=== PATIENT | female | born 1980 | race Caucasian/White ===

== ENCOUNTER 2019-04-18 14:32 | Inpatient (IN) | payer BC ==
[~2019-04-18 14:32] MED LIST: Naloxone 0.4 MG/ML SDV ONE
[2019-04-18] MEDS ORDERED: Sodium Chloride 0.9% 10 ML Syringe FLUSH PRN (14:41)
[2019-04-18] MEDS ORDERED: Sodium Chloride 0.9% 1,000 ML IV SCH (14:45)
--- NOTE | 2019-04-18 15:12 | EDM.PDOCBH ---
ED HPI GENERAL MEDICAL PROBLEM - General Chief Complaint: Drug or Alcohol Abuse Stated Complaint: [facility] Time Seen by Provider: 04/18/19 14:41 Source of Information: Reports: Patient, EMS History Limitations: Reports: Altered Mental Status - History of Present Illness INITIAL COMMENTS - FREE TEXT/NARRATIVE: The patient presents by [facility] for an overdose. The patient was trying to kill herself. The patient was unresponsive for about a half hour before EMS arrived. She supposedly took clonazapam 1mg and tizanadine 4mg. It is not clear how many she took. She had 39 clonazapam left and she had a prescription dispensed on the . She was supposed to take them 3 times per day so she could have taken 50 to 45 pill. She also was prescribed the tizanadine 120 pills on the . She has 71 left. She is supposed to take them 4 times per day. She could have taken 49 to 41 pills. EMS gave her 2 doses of narcan with no affect. Her respiratory rate was about 6. They assisted her ventilations and attempted an oral airway but she gagged and spit it out. They did have a nasal airway in but she did not want that in. She is breathing about 10 to 12 on her own now. She will respond to painful stimuli and then to verbal stimuli. She said she was trying to kill herself. According to EMS family said she has chronic abdominal pain and they cannot figure out what is causing it and she had an exploratory surgery months ago. She has also tried to kill herself in the past. Family is not here yet. Onset: Today Duration: Hour(s): Severity: Severe Improves with: Reports: None Worsens with: Reports: None Associated Symptoms: Reports: No Other Symptoms - Related Data Allergies Allergy/AdvReac Type Severity Reaction Status Date / Time No Known Allergies Allergy Verified 04/18/19 16:25 Home Meds: Home Meds ClonazePAM [KlonoPIN] 04/18/19 [History] Zolpidem Tartrate [Ambien] 04/18/19 [History] tiZANidine [Zanaflex] 04/18/19 [History] ED ROS GENERAL - Review of Systems Review Of Systems: See Below Constitutional: Reports: No Symptoms HEENT: Reports: No Symptoms Respiratory: Reports: No Symptoms Cardiovascular: Reports: No Symptoms Endocrine: Reports: No Symptoms GI/Abdominal: Reports: No Symptoms : Reports: No Symptoms Musculoskeletal: Reports: No Symptoms Skin: Reports: No Symptoms Psychiatric: Reports: Suicidal Ideation ED EXAM, BEHAVIORAL HEALTH - Physical Exam Exam: See Below Exam Limited By: Altered Mental Status General Appearance: Other (Sleepy but arrausable with verbal and painfull stimuli) Eye Exam: Bilateral Eye: EOMI Ears: Normal External Exam Nose: Normal Inspection Head: Atraumatic, Normocephalic Neck: Normal Inspection, Supple, Non-Tender Respiratory/Chest: No Respiratory Distress, Lungs Clear, Normal Breath Sounds Cardiovascular: No Edema, No Murmur, Bradycardia GI/Abdominal: Soft, Non-Tender, No Organomegaly, No Mass, Other (Low mid line scar) Extremities: Normal Inspection EKG INTERPRETATION EKG Date: 04/18/19 Time: 14:54 Rhythm: Other (sinus bradycardia) Rate (Beats/Min): 46 [place]: Normal P-Wave: Present QRS: Normal ST-T: Elevated (Normal early repol) QT: Normal COURSE, BEHAVIORAL HEALTH COMP - Course Vital Signs: Last Vital Signs Temp 96.8 F 04/18/19 15:05 Pulse 46 L 04/18/19 16:30 Resp 12 04/18/19 16:30 BP 83/52 L 04/18/19 16:30 Pulse Ox 100 04/18/19 16:30 Orders, Labs, Meds: Active Orders 24 hr Category Date Time Status Cardiac Monitoring [RC] . DIRECTED Care 04/18/19 14:41 Active EKG Documentation Completion [RC] STAT Care 04/18/19 14:42 Active Insert Mueller Catheter [Insert Urinary Catheter] [OM.PC] Care 04/18/19 14:41 Ordered Q24H Oxygen Therapy [RC] PRN Care 04/18/19 14:41 Active Peripheral IV Care [RC] . DIRECTED Care 04/18/19 14:41 Active Urinary Catheter Assessment [RC] ASDIRECTED Care 04/18/19 15:18 Active Lactated Ringers [Ringers, Lactated] 1,000 ml Med 04/18/19 15:30 Active IV ASDIRECTED Norepinephrine 4 MG in D5W @ 2 MCG/MIN(250ml) Med 04/18/19 17:45 Ordered Norepinephrine [Levophed] 4 mg Dextrose 5% in Water 246 ml IV TITRATE Sodium Chloride 0.9% [Normal Saline] 1,000 ml Med 04/18/19 14:45 Active IV .BOLUS Sodium Chloride 0.9% [Saline Flush] Med 04/18/19 14:41 Active 10 ml FLUSH ASDIRECTED PRN Peripheral IV Insertion Adult [OM.PC] Stat Oth 04/18/19 14:41 Ordered Medication Orders Sodium Chloride (Normal Saline) 1,000 mls @ 1,000 mls/hr IV .BOLUS HOMERO Last Admin: 04/18/19 15:28 Dose: 1,000 mls/hr Lactated Ringer's (Ringers, Lactated) 1,000 mls @ 200 mls/hr IV ASDIRECTED HOMERO Last Admin: 04/18/19 15:27 Dose: 200 mls/hr Norepinephrine Bitartrate 4 mg (/ Dextrose/Water) 250 mls @ 7.5 mls/hr IV TITRATE HOMERO; Protocol Sodium Chloride (Saline Flush) 10 ml FLUSH ASDIRECTED PRN PRN Reason: Keep Vein Open Last Admin: 04/18/19 15:28 Dose: 10 ml Laboratory Tests 04/18/19 04/18/19 04/18/19 Range/Units 14:50 14:50 14:50 WBC 4.87 (3.98-10.04) K/mm3 RBC 3.90 L (3.98-5.22) M/mm3 Hgb 11.8 (11.2-15.7) gm/dl Hct 36.1 (34.1-44.9) % MCV 92.6 (79.4-94.8) fl MCH 30.3 (25.6-32.2) pg MCHC 32.7 (32.2-35.5) g/dl RDW Std Deviation 43.0 (36.4-46.3) fL Plt Count 142 L (182-369) K/mm3 MPV 12.1 (9.4-12.3) fl Neut % (Auto) 50.5 (34.0-71.1) % Lymph % (Auto) 35.1 (19.3-51.7) % Braxton % (Auto) 7.0 (4.7-12.5) % Eos % (Auto) 6.8 H (0.7-5.8) Baso % (Auto) 0.4 (0.1-1.2) % Neut # (Auto) 2.46 (1.56-6.13) K/mm3 Lymph # (Auto) 1.71 (1.18-3.74) K/mm3 Braxton # (Auto) 0.34 (0.24-0.36) K/mm3 Eos # (Auto) 0.33 (0.04-0.36) K/mm3 Baso # (Auto) 0.02 (0.01-0.08) K/mm3 Sodium 144 (136-145) mEq/L Potassium 4.1 (3.5-5.1) mEq/L Chloride 109 H (98-107) mEq/L Carbon Dioxide 25 (21-32) mEq/L Anion Gap 14.1 (5-15) BUN 31 H (7-18) mg/dL Creatinine 0.8 (0.55-1.02) mg/dL Est Cr Clr Drug Dosing 84.11 mL/min Estimated GFR (MDRD) > 60 (>60) mL/min BUN/Creatinine Ratio 38.8 H (14-18) Glucose 112 H (74-106) mg/dL Calcium 8.2 L (8.5-10.1) mg/dL Magnesium 1.8 (1.8-2.4) mg/dl Total Bilirubin 0.5 (0.2-1.0) mg/dL AST 19 (15-37) U/L ALT 22 (14-59) U/L Alkaline Phosphatase 63 (46-116) U/L Creatine Kinase 32 (26-192) U/L Total Protein 5.8 L (6.4-8.2) g/dl Albumin 3.1 L (3.4-5.0) g/dl Globulin 2.7 gm/dL Albumin/Globulin Ratio 1.2 (1-2) HCG, Qual Negative (NEGATIVE) Salicylates (2.8-20) mg/dL Urine Opiates Screen (RVYDTH=435) Ur Buprenorphine Scrn (CUTOFF=10) Ur Oxycodone Screen (RUM6JN=196) Urine Methadone Screen (FQBWIT=422) Ur Propoxyphene Screen (AEWJDJ=353) Acetaminophen 0 L (10-30) ug/mL Ur Barbiturates Screen (POOCFG=091) Ur Tricyclics Screen (QHUNCC=147) Ur Phencyclidine Scrn (CUTOFF=25) Ur Amphetamine Screen (JLDELC=222) U Methamphetamines Scrn (LXYVJJ=209) U Benzodiazepines Scrn (YGYYFJ=097) U Cocaine Metab Screen (ZLKEBK=816) U Marijuana (THC) Screen (CUTOFF=50) Ethyl Alcohol 0.00 (0.00) gm% 04/18/19 04/18/19 Range/Units 14:50 14:55 WBC (3.98-10.04) K/mm3 RBC (3.98-5.22) M/mm3 Hgb (11.2-15.7) gm/dl Hct (34.1-44.9) % MCV (79.4-94.8) fl MCH (25.6-32.2) pg MCHC (32.2-35.5) g/dl RDW Std Deviation (36.4-46.3) fL Plt Count (182-369) K/mm3 MPV (9.4-12.3) fl Neut % (Auto) (34.0-71.1) % Lymph % (Auto) (19.3-51.7) % Braxton % (Auto) (4.7-12.5) % Eos % (Auto) (0.7-5.8) Baso % (Auto) (0.1-1.2) % Neut # (Auto) (1.56-6.13) K/mm3 Lymph # (Auto) (1.18-3.74) K/mm3 [place] # (Auto) (0.24-0.36) K/mm3 Eos # (Auto) (0.04-0.36) K/mm3 Baso # (Auto) (0.01-0.08) K/mm3 Sodium (136-145) mEq/L Potassium (3.5-5.1) mEq/L Chloride (98-107) mEq/L Carbon Dioxide (21-32) mEq/L Anion Gap (5-15) BUN (7-18) mg/dL Creatinine (0.55-1.02) mg/dL Est Cr Clr Drug Dosing mL/min Estimated GFR (MDRD) (>60) mL/min BUN/Creatinine Ratio (14-18) Glucose (74-106) mg/dL Calcium (8.5-10.1) mg/dL Magnesium (1.8-2.4) mg/dl Total Bilirubin (0.2-1.0) mg/dL AST (15-37) U/L ALT (14-59) U/L Alkaline Phosphatase (46-116) U/L Creatine Kinase (26-192) U/L Total Protein (6.4-8.2) g/dl Albumin (3.4-5.0) g/dl Globulin gm/dL Albumin/Globulin Ratio (1-2) HCG, Qual (NEGATIVE) Salicylates 0.7 L (2.8-20) mg/dL Urine Opiates Screen Negative (UUJQVX=769) Ur Buprenorphine Scrn Negative (CUTOFF=10) Ur Oxycodone Screen Negative (YKL2EX=423) Urine Methadone Screen Negative (CUTRTS=334) Ur Propoxyphene Screen Negative (SBTLGA=971) Acetaminophen (10-30) ug/mL Ur Barbiturates Screen Negative (CBDWKM=474) Ur Tricyclics Screen Negative (CSUVLO=578) Ur Phencyclidine Scrn Negative (CUTOFF=25) Ur Amphetamine Screen Negative (IEFFND=459) U Methamphetamines Scrn Negative (HSUHER=622) U Benzodiazepines Scrn Presumptive positive H (WMQTGU=411) U Cocaine Metab Screen Negative (TRGMNH=610) U Marijuana (THC) Screen Negative (CUTOFF=50) Ethyl Alcohol (0.00) gm% Medications Generic Name Dose Route Start Last Admin Trade Name Freq PRN Reason Stop Dose Admin Sodium Chloride 1,000 mls @ 1,000 mls/hr 04/18/19 14:45 04/18/19 15:28 Normal Saline IV 1,000 mls/hr .BOLUS HOMERO Administration Lactated Ringer's 1,000 mls @ 200 mls/hr 04/18/19 15:30 04/18/19 15:27 Ringers, Lactated IV 200 mls/hr ASDIRECTED HOMERO Administration Norepinephrine Bitartrate 4 mg 250 mls @ 7.5 mls/hr 04/18/19 17:45 / Dextrose/Water IV TITRATE HOMERO Protocol 2 MCG/MIN Sodium Chloride 10 ml 04/18/19 14:41 04/18/19 15:28 Saline Flush FLUSH 10 ml ASDIRECTED PRN Administration Keep Vein Open Discontinued Medications Generic Name Dose Route Start Last Admin Trade Name Freq PRN Reason Stop Dose Admin Flumazenil 0.2 mg 04/18/19 16:17 04/18/19 16:49 Romazicon IVPUSH 04/18/19 16:18 0.2 mg ONETIME ONE Administration Flumazenil Confirm 04/18/19 16:22 Romazicon Administered 04/18/19 16:23 Dose 0.5 mg .ROUTE .STK-MED ONE Naloxone HCl 0.4 mg 04/18/19 15:29 04/18/19 14:34 Narcan IVPUSH 04/18/19 15:30 0.4 mg ONETIME ONE Administration Naloxone HCl 10 mg 04/18/19 16:17 04/18/19 16:29 Narcan IVPUSH 04/18/19 16:18 10 mg ONETIME ONE Administration Re-Assessment/Re-Exam: The patient was breathing at 10 to 12 and she is 100% on oxygen. I do not need to intubate her at this time. I have ordered a 2nd IV and I will give her a liter NS bolus. I called poison control and they said clonazapam will peak within 1 to 2 hours and may have an effect past 6 hours. We could try some romazicon 0.2mg IV before we decide to intubate to see if that helps. The tizanidine has a peak affect in 1-2 hours and you may see clonidine like affects such as bradycardia and hypotension. They recommend high dose of narcan to help with those affects of 10mg. Some of the affects may last over 6 hours. She also have may have taken ambien. Same plan for ambien but no medicine is needed. I also ordered an EKG that shows a sinus bradycardia with normal early repol. I also have labs ordered. Her CBC and CMP look good. Her HCG is negative. Her salicylates and acetaminophen are negative. Her ETOH is negative. Her UDS is positive for benzos. Her BP was in the mid to upper 90s and now it is down to the upper 80s. I will try the naloxone 10mg IV. That did not help. Her BP is 79 systolic now. I will start some levophed. I gave her some romazicon and she was able to talk better to me. I feel she will need to be admitted. I called Dr Cabral and she will come admit the patient. Departure - Departure Time of Disposition: 17:40 Disposition: Admitted As Inpatient 65 Condition: Serious Clinical Impression: Overdose Qualifiers: Encounter type: initial encounter Injury intent: intentional self-harm Qualified Code(s): T50.902A - Poisoning by unspecified drugs, medicaments and biological substances, intentional self-harm, initial encounter Suicidal overdose Qualifiers: Encounter type: initial encounter Qualified Code(s): T50.902A - Poisoning by unspecified drugs, medicaments and biological substances, intentional self-harm , initial encounter Hypotension Qualifiers: Hypotension type: hypotension due to drug Qualified Code(s): I95.2 - Hypotension due to drugs - Discharge Information - My Orders Last 24 Hours: My Active Orders 04/18/19 14:41 Cardiac Monitoring [RC] . DIRECTED Insert Mueller Catheter [Insert Urinary Catheter] [OM.PC] Q24H Oxygen Therapy [RC] PRN Peripheral IV Care [RC] . DIRECTED Sodium Chloride 0.9% [Saline Flush] 10 ml FLUSH ASDIRECTED PRN Peripheral IV Insertion Adult [OM.PC] Stat 04/18/19 14:42 EKG Documentation Completion [RC] STAT 04/18/19 14:45 Sodium Chloride 0.9% [Normal Saline] 1,000 ml IV .BOLUS 04/18/19 15:18 Urinary Catheter Assessment [RC] ASDIRECTED 04/18/19 15:30 Lactated Ringers [Ringers, Lactated] 1,000 ml IV ASDIRECTED 04/18/19 17:45 Norepinephrine 4 MG in D5W @ 2 MCG/MIN(250ml) Norepinephrine [Levophed] 4 mg Dextrose 5% in Water 246 ml IV TITRATE - Assessment/Plan Last 24 Hours: My Active Orders 04/18/19 14:41 Cardiac Monitoring [RC] . DIRECTED Insert Mueller Catheter [Insert Urinary Catheter] [OM.PC] Q24H Oxygen Therapy [RC] PRN Peripheral IV Care [RC] . DIRECTED Sodium Chloride 0.9% [Saline Flush] 10 ml FLUSH ASDIRECTED PRN Peripheral IV Insertion Adult [OM.PC] Stat 04/18/19 14:42 EKG Documentation Completion [RC] STAT 04/18/19 14:45 Sodium Chloride 0.9% [Normal Saline] 1,000 ml IV .BOLUS 04/18/19 15:18 Urinary Catheter Assessment [RC] ASDIRECTED 04/18/19 15:30 Lactated Ringers [Ringers, Lactated] 1,000 ml IV ASDIRECTED 04/18/19 17:45 Norepinephrine 4 MG in D5W @ 2 MCG/MIN(250ml) Norepinephrine [Levophed] 4 mg Dextrose 5% in Water 246 ml IV TITRATE
[2019-04-18 15:29] LABS: ACETAMINOPHEN 0 ug/mL (10-30)
[2019-04-18] MEDS ORDERED: Naloxone 0.4 MG/ML SDV IVPUSH ONE (15:29)
[2019-04-18] MEDS ORDERED: Lactated Ringers 1,000 ML IV SCH (15:30)
[2019-04-18] MEDS ORDERED: Naloxone 2 MG/2 ML Syringe IVPUSH ONE (16:17)
[2019-04-18] MEDS ORDERED: Flumazenil 0.1 MG/ML 5 ML MDV IVPUSH ONE (16:17)
[2019-04-18] MEDS ORDERED: Flumazenil 0.1 MG/ML 5 ML MDV ONE (16:22)
[2019-04-18] MEDS ORDERED: Norepinephrine 4 MG in Dextrose 5% in Water 246 ML IV SCH ×2 (17:45)
--- NOTE | 2019-04-18 18:39 | PCM.HP.2 ---
H&P History of Present Illness - General Date of Service: 04/18/19 - History of Present Illness Initial Comments - Free Text/Narative: This is a 39 year old female with extensive psychiatric medical history who is brought to the ED by EMS after being found unresponsive by . As per they recently moved here from [place], currently live in [facility]. Patient has multiple suicide attempts in the past, mostly drug overdose except for one time when she cut her wrists. states she has these episodes throughout the year. Was recently having trouble sleeping, went to [facility] and got ambien and as per gets mean when she takes it. She got in an argument with son last night and son threw meds down the toilet. woke up this afternoon and was unable to arouse her - Related Data Allergies/Adverse Reactions: Allergies Allergy/AdvReac Type Severity Reaction Status Date / Time No Known Allergies Allergy Verified 04/18/19 16:25 Home Medications: Home Meds ClonazePAM [KlonoPIN] 04/18/19 [History] Zolpidem Tartrate [Ambien] 04/18/19 [History] tiZANidine [Zanaflex] 04/18/19 [History] Past Medical History - Past Surgical History GI Surgical History: Reports: Other (See Below) Other GI Surgeries/Procedures: laparotomy Social & Family History - Family History Family Medical History: Unobtainable - Tobacco Use Smoking Status *Q: Unknown Ever Smoked H&P Review of Systems - Review of Systems: Review Of Systems: Unable To Obtain Reason Not Obtained: AMS Exam - Exam Exam: See Below - Vital Signs Vital Signs: Last Vital Signs Temp 96.8 F 04/18/19 15:05 Pulse 44 L 04/18/19 17:48 Resp 14 04/18/19 17:48 BP 102/75 04/18/19 17:48 Pulse Ox 99 04/18/19 17:48 Weight: 68.039 kg - Patient Data Result Diagrams: 04/18/19 14:50 04/18/19 14:50 - Problem List (1) Depression SNOMED Code(s): 67217793 ICD Code: F32.9 - MAJOR DEPRESSIVE DISORDER, SINGLE EPISODE, UNSPECIFIED Status: Acute Current Visit: Yes (2) Borderline personality disorder SNOMED Code(s): 81883995 ICD Code: F60.3 - BORDERLINE PERSONALITY DISORDER Status: Acute Current Visit: Yes (3) Schizophrenia SNOMED Code(s): 77913329 ICD Code: F20.9 - SCHIZOPHRENIA, UNSPECIFIED Status: Acute Current Visit : Yes (4) Hypotension SNOMED Code(s): 16701023 ICD Code: I95.9 - HYPOTENSION, UNSPECIFIED Status: Acute Current Visit: Yes Qualifiers: Hypotension type: hypotension due to drug Qualified Code(s): I95.2 - Hypotension due to drugs (5) Overdose SNOMED Code(s): 57054022 ICD Code: T50.901A - POISONING BY UNSP DRUG/MEDS/BIOL SUBST, ACCIDENTAL, INIT Status: Acute Current Visit: Yes Qualifiers: Encounter type: initial encounter Injury intent: intentional self-harm Qualified Code(s): T50.902A - Poisoning by unspecified drugs, medicaments and biological substances, intentional self-harm, initial encounter (6) Suicidal overdose SNOMED Code(s): 50152365, 03798639 ICD Code: T50.902A - POISONING BY UNSP DRUG/MEDS/BIOL SUBST, SELF-HARM, INIT Status: Acute Current Visit: Yes Qualifiers: Encounter type: initial encounter Qualified Code(s): T50.902A - Poisoning by unspecified drugs, medicaments and biological substances, intentional self- harm, initial encounter (7) Major depressive disorder SNOMED Code(s): 957388250 ICD Code: F32.9 - MAJOR DEPRESSIVE DISORDER, SINGLE EPISODE, UNSPECIFIED Status: Acute Current Visit: Yes (8) Hypoxemia SNOMED Code(s): 739965726 ICD Code: R09.02 - HYPOXEMIA Status: Acute Current Visit: Yes (9) Hypoxemia requiring supplemental oxygen SNOMED Code(s): 374695578 ICD Code: R09.02 - HYPOXEMIA; Z99.81 - DEPENDENCE ON SUPPLEMENTAL OXYGEN Status: Acute Current Visit: Yes Problem List Initiated/Reviewed/Updated: Yes Assessment/Plan Comment:: Intentional drug overdose with Suicide attempt with drug overdose Refractory hypotension 2/2 drug overdose POISON CONTROL Given flumazenil and naltrexone with improvement in mental status No changes to bradycardia and hypotension Poison control recommended starting norepinephrine Multiple prior attempts PLAN - Central line placement - Taper down NE as tolerated to keep MAP > 65 - 1:1 - Psychiatry consult - LR at 250ml/hr Major depressive disorder Borderline personality disorder Schizophrenia unknown home meds PLAN - Request records in AM PROPHYLAXIS DVT- Lovenox GI- Not indicated CODE STATUS: FULL CODE DISPOSITION: Admitted to ICU for norepinephrine management of refractory hypotension induced by drug overdose. Pending psychiatry evaluation. Will need to be transferred to inpatient psychiatric unit upon stabilization.
--- NOTE | 2019-04-18 18:42 | PCM.PRNOTE ---
- Free Text/Narrative Note: Central Venous Catheter (CVC, Central Line) Placement Date: 04/18/19 Time: 18:17 Indication: Hemodynamic monitoring & Intravenous access Attending: Татьяна Cabral MD A time-out was completed verifying correct patient, procedure, site, positioning , and special equipment if applicable. The patient was placed in a dependent position appropriate for central line placement based on the vein to be cannulated. The patients right neck was prepped and draped in sterile fashion. 1% Lidocaine was used to anesthetize the surrounding skin area. A triple lumen 7-[place] Cordis catheter was introduced into the the internal jugular using the Seldinger technique and under ultrasound guidance. The catheter was threaded smoothly over the guide wire and appropriate blood return was obtained. Each lumen of the catheter was evacuated of air and flushed with sterile saline. The catheter was then sutured in place to the skin and a sterile dressing applied. Perfusion to the extremity distal to the point of catheter insertion was checked and found to be adequate. Estimated Blood Loss: 5mL The patient tolerated the procedure well and there were no complications.
[2019-04-18] MEDS: Lactated Ringers 1,000 ML IV SCH (20:25)
[2019-04-19] MEDS: Lactated Ringers 1,000 ML IV SCH ×7 (00:26→21:16)
--- NOTE | 2019-04-19 08:13 | CR ---
Chest: Frontal view of the chest was obtained. Comparison: No previous chest x-ray. Right-sided central line is seen which descends through the right atria into the inferior vena cava which appears to be inferior to the infrahepatic portion of the inferior vena cava. Heart size and mediastinum are normal. Lungs are clear. Bony structures are unremarkable. Previous cholecystectomy is noted. Impression: 1. Tip of right-sided central line within the inferior vena cava. 2. Nothing acute seen on frontal chest x-ray. Diagnostic code #2 This report was dictated in [place] Standard Time
[2019-04-19] MEDS: Enoxaparin 40 MG/0.4 ML Syringe SUBCUT SCH ×2 (08:51→08:53)
[2019-04-19] MEDS: Nicotine 21 MG/24 Hr Patch TRDERM SCH (09:29)
[2019-04-19] MEDS: Ondansetron 4 MG Tab.DIS PO PRN (13:17)
[2019-04-19] MEDS: Venlafaxine 37.5 MG Tab PO SCH (17:41)
[2019-04-19] MEDS: levETIRAcetam 500 MG Tab PO SCH (17:53)
[2019-04-19] MEDS ORDERED: QUEtiapine 25 MG Tab PO SCH (18:00)
[2019-04-20] MEDS: Ondansetron 4 MG Tab.DIS PO PRN (01:33)
[2019-04-20] MEDS: Lactated Ringers 1,000 ML IV SCH ×2 (04:58→08:55)
[2019-04-20] MEDS: Enoxaparin 40 MG/0.4 ML Syringe SUBCUT SCH (09:07)
[2019-04-20] MEDS: Nicotine 21 MG/24 Hr Patch TRDERM SCH (09:23)
[2019-04-20] MEDS: Sucralfate Suspension 1 GM/10 ML Cup PO SCH (09:23)
[2019-04-20] MEDS: Venlafaxine 37.5 MG Tab PO SCH (09:24)
[2019-04-20] MEDS: levETIRAcetam 500 MG Tab PO SCH ×2 (09:24→20:28)
[2019-04-20] MEDS ORDERED: busPIRone 5 MG Tab PO SCH (11:30)
--- NOTE | 2019-04-20 13:14 | PCM.PN ---
- General Info Date of Service: 04/19/19 Subjective Update: Patient had a hard time sleeping Is feeling very anxious Tolerating diet Ambulating to and from restroom - Patient Data Vitals - Most Recent: Last Vital Signs Temp 97.7 F 04/20/19 12:00 Pulse 121 H 04/19/19 17:00 Resp 14 04/20/19 12:00 BP 128/93 H 04/20/19 12:00 Pulse Ox 97 04/20/19 12:00 Weight - Most Recent: 69.309 kg - Exam General: Alert, Oriented, Cooperative, Mild Distress HEENT: Pupils Equal, Pupils Reactive, Mucous Membr. Moist/[place] Neck: Supple, Trachea Midline Lungs: Clear to Auscultation, Normal Respiratory Effort Cardiovascular: Regular Rate, Regular Rhythm GI/Abdominal Exam: Normal Bowel Sounds, Soft, Non-Tender Back Exam: Normal Inspection Extremities: Normal Inspection, No Pedal Edema, Normal Capillary Refill Neurological: No New Focal Deficit Psy/Mental Status: Labile Mood, Anxious - Problem List & Annotations (1) Depression SNOMED Code(s): 62986752 Code(s): F32.9 - MAJOR DEPRESSIVE DISORDER, SINGLE EPISODE, UNSPECIFIED Status: Acute Current Visit: Yes (2) Borderline personality disorder SNOMED Code(s): 69506713 Code(s): F60.3 - BORDERLINE PERSONALITY DISORDER Status: Acute Current Visit: Yes (3) Schizophrenia SNOMED Code(s): 24872181 Code(s): F20.9 - SCHIZOPHRENIA, UNSPECIFIED Status: Acute Current Visit: Yes (4) Hypotension SNOMED Code(s): 68081070 Code(s): I95.9 - HYPOTENSION, UNSPECIFIED Status: Acute Current Visit: Yes Qualifiers: Hypotension type: hypotension due to drug Qualified Code(s): I95.2 - Hypotension due to drugs (5) Overdose SNOMED Code(s): 05809342 Code(s): T50.901A - POISONING BY UNSP DRUG/MEDS/BIOL SUBST, ACCIDENTAL, INIT Status: Acute Current Visit: Yes Qualifiers: Encounter type: initial encounter Injury intent: intentional self-harm Qualified Code(s): T50.902A - Poisoning by unspecified drugs, medicaments and biological substances, intentional self-harm, initial encounter (6) Suicidal overdose SNOMED Code(s): 21525562, 79008647 Code(s): T50.902A - POISONING BY UNSP DRUG/MEDS/BIOL SUBST, SELF-HARM, INIT Status: Acute Current Visit: Yes Qualifiers: Encounter type: initial encounter Qualified Code(s): T50.902A - Poisoning by unspecified drugs, medicaments and biological substances, intentional self- harm, initial encounter (7) Major depressive disorder SNOMED Code(s): 742449617 Code(s): F32.9 - MAJOR DEPRESSIVE DISORDER, SINGLE EPISODE, UNSPECIFIED Status: Acute Current Visit: Yes (8) Hypoxemia SNOMED Code(s): 497784774 Code(s): R09.02 - HYPOXEMIA Status: Acute Current Visit: Yes (9) Hypoxemia requiring supplemental oxygen SNOMED Code(s): 302189267 Code(s): R09.02 - HYPOXEMIA; Z99.81 - DEPENDENCE ON SUPPLEMENTAL OXYGEN Status: Acute Current Visit: Yes - Problem List Review Problem List Initiated/Reviewed/Updated: Yes - Plan Plan:: Intentional drug overdose with Suicide attempt with drug overdose Refractory hypotension 2/2 drug overdose with clonopin and tizanidine POISON CONTROL Given flumazenil and naltrexone with improvement in mental status Once in ER was found to be hypotensive--> given multiple liters of IV fluids --> No changes to bradycardia and hypotension Poison control recommended starting norepinephrine x7 prior attempts Norepinephrine discontinued today at 1AM and BP has remained stable PLAN - 1:1 - Psychiatry consult - LR at 250ml/hr Major depressive disorder Borderline personality disorder Schizophrenia multiple home meds PLAN - Will reconcile home medications today PROPHYLAXIS DVT- Lovenox GI- Not indicated CODE STATUS: FULL CODE DISPOSITION: Admitted to ICU for norepinephrine management of refractory hypotension induced by drug overdose. Pending psychiatry evaluation. Medically stable.
[2019-04-20] MEDS ORDERED: Venlafaxine 37.5 MG Tab PO SCH (21:00)
[2019-04-20] MEDS ORDERED: chlorproMAZINE 25 MG Tab PO SCH (21:00)
--- NOTE | 2019-04-21 06:33 | PCM.PN ---
- General Info Date of Service: 04/20/19 Subjective Update: Patient had an ok night Still complaining of anxiety No pain Tolerating diet Ambulating to and from restroom - Patient Data Weight - Most Recent: 67.585 kg - Exam General: Alert, Oriented, Cooperative HEENT: Pupils Equal, Pupils Reactive, EOMI, Mucous Membr. Moist/[place] Neck: Supple, Trachea Midline, No JVD, No Thyromegaly Lungs: Clear to Auscultation, Normal Respiratory Effort. No: Crackles, Rales, Rhonchi, Wheezing Cardiovascular: Regular Rate, Regular Rhythm. No: Murmurs, Gallops, Rubs GI/Abdominal Exam: Normal Bowel Sounds, Soft, Non-Tender Back Exam: Normal Inspection Extremities: Normal Inspection, Non-Tender, No Pedal Edema Neurological: No New Focal Deficit Psy/Mental Status: Labile Mood, Anxious - Problem List & Annotations (1) Depression SNOMED Code(s): 83363777 Code(s): F32.9 - MAJOR DEPRESSIVE DISORDER, SINGLE EPISODE, UNSPECIFIED Status: Acute Current Visit: Yes (2) Borderline personality disorder SNOMED Code(s): 90176316 Code(s): F60.3 - BORDERLINE PERSONALITY DISORDER Status: Acute Current Visit: Yes (3) Schizophrenia SNOMED Code(s): 53369858 Code(s): F20.9 - SCHIZOPHRENIA, UNSPECIFIED Status: Acute Current Visit: Yes (4) Hypotension SNOMED Code(s): 67572791 Code(s): I95.9 - HYPOTENSION, UNSPECIFIED Status: Acute Current Visit: Yes Qualifiers: Hypotension type: hypotension due to drug Qualified Code(s): I95.2 - Hypotension due to drugs (5) Overdose SNOMED Code(s): 73857175 Code(s): T50.901A - POISONING BY UNSP DRUG/MEDS/BIOL SUBST, ACCIDENTAL, INIT Status: Acute Current Visit: Yes Qualifiers: Encounter type: initial encounter Injury intent: intentional self-harm Qualified Code(s): T50.902A - Poisoning by unspecified drugs, medicaments and biological substances, intentional self-harm, initial encounter (6) Suicidal overdose SNOMED Code(s): 07998641, 59494687 Code(s): T50.902A - POISONING BY UNSP DRUG/MEDS/BIOL SUBST, SELF-HARM, INIT Status: Acute Current Visit: Yes Qualifiers: Encounter type: initial encounter Qualified Code(s): T50.902A - Poisoning by unspecified drugs, medicaments and biological substances, intentional self- harm, initial encounter (7) Major depressive disorder SNOMED Code(s): 315438437 Code(s): F32.9 - MAJOR DEPRESSIVE DISORDER, SINGLE EPISODE, UNSPECIFIED Status: Acute Current Visit: Yes (8) Hypoxemia SNOMED Code(s): 386131886 Code(s): R09.02 - HYPOXEMIA Status: Acute Current Visit: Yes (9) Hypoxemia requiring supplemental oxygen SNOMED Code(s): 445047863 Code(s): R09.02 - HYPOXEMIA; Z99.81 - DEPENDENCE ON SUPPLEMENTAL OXYGEN Status: Acute Current Visit: Yes - Problem List Review Problem List Initiated/Reviewed/Updated: Yes - Plan Plan:: Intentional drug overdose with Suicide attempt with drug overdose Drug overdose with clonopin and tizanidine POISON CONTROL Given flumazenil and naltrexone with improvement in mental status Once in ER was found to be hypotensive--> given multiple liters of IV fluids --> No changes to bradycardia and hypotension Poison control recommended starting norepinephrine x7 prior attempts Norepinephrine discontinued >24 hours ago and BP has remained stable Seen by psychiatry today who recommended stopping seroquel and effexor and starting Thorazine PLAN - 1:1 - D/C Seroquel and Effexor - Start Thorazine 75mgPO qHS - Discontinue IVF - Remove central line - Discontinue Mueller - Downgrade to med-surg - Transfer to inpatient psychiatry unit Major depressive disorder Borderline personality disorder Schizophrenia multiple home meds PLAN - Will reconcile home medications today Refractory hypotension and bradycardia, resolved PROPHYLAXIS DVT- Lovenox GI- Not indicated CODE STATUS: FULL CODE DISPOSITION: Admitted to ICU for norepinephrine management of refractory drug induced hypotension and bradycardia, weanedd off norepinephrine successfully on 04/19 at 1AM. Seen by psychiatry, Dr. Sharpe, today who is recommending inpatient psychiatry admission. Patient is currently medically cleared, will call and present case to [facility] and arrange transfer once accepted.
[2019-04-21] MEDS: levETIRAcetam 500 MG Tab PO SCH (08:17)
[2019-04-21] MEDS: Sucralfate Suspension 1 GM/10 ML Cup PO SCH (08:18)
[2019-04-21] MEDS: Nicotine 21 MG/24 Hr Patch TRDERM SCH (08:19)
[2019-04-21] MEDS: Enoxaparin 40 MG/0.4 ML Syringe SUBCUT SCH (08:22)
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
[2019-04-21] MEDS ORDERED: hydrOXYzine HCl 25 MG Tab PO ONE (08:50)
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
[2019-04-21] MEDS: Ondansetron 4 MG Tab.DIS PO PRN (10:08)
== END 2019-04-21 10:30 | DRG 812 ==
LOC: EEVIPCON 14:32 → JD.ED 14:32 → JD.ICU 18:58 → JD.MS 04-20 14:30
PROVIDERS: ADMIT Internal Medicine; ATTEND Internal Medicine
PROC: 02HV33Z Insertion of Infusion Device into Superior Vena Cava, Percutaneous Approach (ICD-10-PCS; principal; 2019-04-18)
DX: T42.8X1A Poisoning by antiparkinsonism drugs and other central muscle-tone depressants, accidental (unintentional), initial encounter (principal); F20.9 Schizophrenia, unspecified; I95.2 Hypotension due to drugs; E11.9 Type 2 diabetes mellitus without complications; F43.10 Post-traumatic stress disorder, unspecified; F33.2 Major depressive disorder, recurrent severe without psychotic features; Z99.81 Dependence on supplemental oxygen; Z91.5 Personal history of self-harm; Z79.899 Other long term (current) drug therapy; Z88.8 Allergy status to other drugs, medicaments and biological substances
CPT/HCPCS: 36415; 51702; 80053; 80306; 81001; 81025; 82550; 83735; 84100; 84703; 85025; 85027; 87086; 87088; 87186; 93005; 93010; 94762; 96361; 96374; 96375; 96376; 99223; 99232; 99239; 99285; 99285-25; A9270-GY; G0480; J1650; J2310; J3490; J7030; J7060; J7120

== ENCOUNTER 2019-05-17 15:19 | Inpatient (IN) | payer BC ==
[2019-05-17] MEDS ORDERED: Sodium Chloride 0.9% 10 ML Syringe FLUSH PRN (15:26)
[2019-05-17] MEDS ORDERED: Sodium Chloride 0.9% 1,000 ML IV SCH (15:30)
--- NOTE | 2019-05-17 15:30 | EDM.PDOCBH ---
ED HPI GENERAL MEDICAL PROBLEM - General Chief Complaint: Behavioral/Psych Stated Complaint: [facility] Time Seen by Provider: 05/17/19 15:24 Source of Information: Reports: Patient, RN Notes Reviewed - History of Present Illness INITIAL COMMENTS - FREE TEXT/NARRATIVE: 39-year-old female has been brought in by [facility] with [facility] intercept status post overdose and attempted hanging, apparent suicide attempt. She was found in the closet of her home with something about her neck, attempted hanging. Sounds like it may have been a cell phone cord but that has not been verified. She is reported to take an unknown quantity of Seroquel, clonazepam and tizanidine. She initially was not answering questions on arrival to ED but then did start answering questions short time later. She states it was "sometime this morning that she did take the medications which would be in the range of 4-7 hours ago. She feels very sleepy. She states her chest feels tight. Why asked why she overdosed and attempted to hang herself she states I "was tired" she does have history of prior overdose. No family members present at this time. - Related Data Allergies Allergy/AdvReac Type Severity Reaction Status Date / Time gabapentin AdvReac Syncope Verified 05/17/19 15:31 Home Meds: Home Meds chlorproMAZINE [Thorazine] 75 mg PO BEDTIME 10 Days #30 tablet 04/21/19 [Rx] levETIRAcetam [Keppra] 500 mg PO BID 10 Days #20 tablet 04/21/19 [Rx] QUEtiapine [SEROquel] 100 mg PO BEDTIME 05/17/19 [History] clonazePAM [Klonopin] 1 mg PO TID 05/17/19 [History] tiZANidine [Zanaflex] 4 mg PO TID 05/17/19 [History] Past Medical History Psychiatric History: Reports: Anxiety, Suicide Attempt, Suicidal Ideation - Past Surgical History GI Surgical History: Reports: Other (See Below) Other GI Surgeries/Procedures: laparotomy Social & Family History - Family History Family Medical History: Unobtainable ED ROS GENERAL - Review of Systems Review Of Systems: See Below Constitutional: Denies: Fever, Chills HEENT: Denies: Throat Pain, Throat Swelling Respiratory: Denies: Shortness of Breath, Wheezing Cardiovascular: Denies: Chest Pain GI/Abdominal: Denies: Abdominal Pain, Nausea, Vomiting Musculoskeletal: Reports: Neck Pain. Denies: Back Pain Skin: Reports: Erythema (anterior neck). Denies: Rash Neurological: Reports: Dizziness, Weakness. Denies: Numbness, Tingling ED EXAM, BEHAVIORAL HEALTH - Physical Exam Exam: See Below General Appearance: Other (extremely drowsy on arrival to ED, answering simple questions only) Eye Exam: Bilateral Eye: PERRL Ears: Normal External Exam Nose: Normal Inspection Throat/Mouth: Normal Inspection Head: Atraumatic. No: Facial Swelling Neck: Other (tyere is an erythematous horizontal line anterior neck, no visible swelling or bruising, tender ant. and post. neck) Respiratory/Chest: Lungs Clear, Normal Breath Sounds Cardiovascular: Tachycardia GI/Abdominal: Soft, Non-Tender Back Exam: No: CVA Tenderness (L), CVA Tenderness (R) Extremities: Normal Inspection, Normal Range of Motion Neurological: Opens Eyes to Commands, Slow Response to Commands, Other (very drowsy, speech very slurred at time of initial exam) Skin Exam: Warm, Dry, Normal color. No: Diaphoretic EKG INTERPRETATION EKG Date: 05/17/19 Rhythm: Other (Sinus tachycardia) Rate (Beats/Min): 111 [place]: Normal P-Wave: Present QRS: Normal ST-T: Normal COURSE, BEHAVIORAL HEALTH COMP - Course Vital Signs: Last Vital Signs Temp 97.6 F 05/18/19 07:33 Pulse 95 05/18/19 07:33 Resp 16 05/18/19 07:33 BP 108/76 05/18/19 07:33 Pulse Ox 99 05/18/19 07:33 Orders, Labs, Meds: Active Orders 24 hr Category Date Time Status Insert Mueller Catheter [Insert Urinary Catheter] [OM.PC] Care 05/17/19 15:38 Ordered Stat Peripheral IV Care [RC] Q2HR Care 05/17/19 15:26 Active Urinary Catheter Assessment [RC] ASDIRECTED Care 05/17/19 15:44 Active Sodium Chloride 0.9% [Saline Flush] Med 05/17/19 15:26 Active 10 ml FLUSH ASDIRECTED PRN Peripheral IV Insertion Adult [OM.PC] Stat Oth 05/17/19 15:25 Ordered Medication Orders Acetaminophen (Tylenol) 650 mg PO Q4H PRN PRN Reason: Pain (Mild 1-3)/fever Levetiracetam (Keppra) 500 mg PO BID [facility] Last Admin: 05/17/19 20:54 Dose: 500 mg Melatonin (Melatonin) 9 mg PO BEDTIME [facility] Last Admin: 05/17/19 20:54 Dose: 9 mg Sodium Chloride (Saline Flush) 10 ml FLUSH ASDIRECTED PRN PRN Reason: Keep Vein Open Last Admin: 05/17/19 15:52 Dose: 10 ml Laboratory Tests 05/17/19 05/17/19 05/17/19 Range/Units 15:40 15:50 15:50 WBC 6.85 (3.98-10.04) K/mm3 RBC 4.19 (3.98-5.22) M/mm3 Hgb 12.7 (11.2-15.7) gm/dl Hct 38.4 (34.1-44.9) % MCV 91.6 (79.4-94.8) fl MCH 30.3 (25.6-32.2) pg MCHC 33.1 (32.2-35.5) g/dl RDW Std Deviation 42.1 (36.4-46.3) fL Plt Count 165 L (182-369) K/mm3 MPV 11.4 (9.4-12.3) fl Neut % (Auto) 63.4 (34.0-71.1) % Lymph % (Auto) 27.4 (19.3-51.7) % [place] % (Auto) 5.7 (4.7-12.5) % Eos % (Auto) 3.1 (0.7-5.8) Baso % (Auto) 0.3 (0.1-1.2) % Neut # (Auto) 4.34 (1.56-6.13) K/mm3 Lymph # (Auto) 1.88 (1.18-3.74) K/mm3 [place] # (Auto) 0.39 H (0.24-0.36) K/mm3 Eos # (Auto) 0.21 (0.04-0.36) K/mm3 Baso # (Auto) 0.02 (0.01-0.08) K/mm3 Sodium 146 H (136-145) mEq/L Potassium 4.5 (3.5-5.1) mEq/L Chloride 109 H (98-107) mEq/L Carbon Dioxide 25 (21-32) mEq/L Anion Gap 16.5 H (5-15) BUN 14 (7-18) mg/dL Creatinine 0.9 (0.55-1.02) mg/dL Est Cr Clr Drug Dosing 62.70 mL/min Estimated GFR (MDRD) > 60 (>60) mL/min BUN/Creatinine Ratio 15.6 (14-18) Glucose 105 (74-106) mg/dL Lactic Acid (0.4-2.0) mmol/L Calcium 8.5 (8.5-10.1) mg/dL Total Bilirubin 0.1 L (0.2-1.0) mg/dL AST 49 H (15-37) U/L ALT 66 H (14-59) U/L Alkaline Phosphatase 90 (46-116) U/L Total Protein 6.9 (6.4-8.2) g/dl Albumin 3.6 (3.4-5.0) g/dl Globulin 3.3 gm/dL Albumin/Globulin Ratio 1.1 (1-2) Salicylates (2.8-20) mg/dL Urine Opiates Screen Negative (KNSDQP=026) Ur Buprenorphine Scrn Negative (CUTOFF=10) Ur Oxycodone Screen Negative (QYL9ZC=924) Urine Methadone Screen Negative (TAGRJO=246) Ur Propoxyphene Screen Negative (EAFKRB=588) Acetaminophen 0 L (10-30) ug/mL Ur Barbiturates Screen Negative (TVTUTM=229) Ur Tricyclics Screen Presumptive positive H (KNXSFZ=038) Ur Phencyclidine Scrn Negative (CUTOFF=25) Ur Amphetamine Screen Negative (ZKDYJE=816) U Methamphetamines Scrn Negative (MRKDOU=529) U Benzodiazepines Scrn Presumptive positive H (MSKBEC=005) U Cocaine Metab Screen Negative (VOVMKP=656) U Marijuana (THC) Screen Negative (CUTOFF=50) Ethyl Alcohol 0.00 (0.00) gm% 05/17/19 05/17/19 Range/Units 15:50 17:25 WBC (3.98-10.04) K/mm3 RBC (3.98-5.22) M/mm3 Hgb (11.2-15.7) gm/dl Hct (34.1-44.9) % MCV (79.4-94.8) fl MCH (25.6-32.2) pg MCHC (32.2-35.5) g/dl RDW Std Deviation (36.4-46.3) fL Plt Count (182-369) K/mm3 MPV (9.4-12.3) fl Neut % (Auto) (34.0-71.1) % Lymph % (Auto) (19.3-51.7) % [place] % (Auto) (4.7-12.5) % Eos % (Auto) (0.7-5.8) Baso % (Auto) (0.1-1.2) % Neut # (Auto) (1.56-6.13) K/mm3 Lymph # (Auto) (1.18-3.74) K/mm3 [place] # (Auto) (0.24-0.36) K/mm3 Eos # (Auto) (0.04-0.36) K/mm3 Baso # (Auto) (0.01-0.08) K/mm3 Sodium (136-145) mEq/L Potassium (3.5-5.1) mEq/L Chloride (98-107) mEq/L Carbon Dioxide (21-32) mEq/L Anion Gap (5-15) BUN (7-18) mg/dL Creatinine (0.55-1.02) mg/dL Est Cr Clr Drug Dosing mL/min Estimated GFR (MDRD) (>60) mL/min BUN/Creatinine Ratio (14-18) Glucose (74-106) mg/dL Lactic Acid 1.5 (0.4-2.0) mmol/L Calcium (8.5-10.1) mg/dL Total Bilirubin (0.2-1.0) mg/dL AST (15-37) U/L ALT (14-59) U/L Alkaline Phosphatase (46-116) U/L Total Protein (6.4-8.2) g/dl Albumin (3.4-5.0) g/dl Globulin gm/dL Albumin/Globulin Ratio (1-2) Salicylates 1.5 L (2.8-20) mg/dL Urine Opiates Screen (CZRETV=314) Ur Buprenorphine Scrn (CUTOFF=10) Ur Oxycodone Screen (HTS8TS=606) Urine Methadone Screen (NRXPUU=209) Ur Propoxyphene Screen (NBZXVR=172) Acetaminophen (10-30) ug/mL Ur Barbiturates Screen (DQEVYI=397) Ur Tricyclics Screen (GMXSND=931) Ur Phencyclidine Scrn (CUTOFF=25) Ur Amphetamine Screen (NWESQL=383) U Methamphetamines Scrn (FIFDZX=756) U Benzodiazepines Scrn (MFTQKP=973) U Cocaine Metab Screen (FSKBKJ=791) U Marijuana (THC) Screen (CUTOFF=50) Ethyl Alcohol (0.00) gm% Medications Generic Name Dose Route Start Last Admin Trade Name Freq PRN Reason Stop Dose Admin Acetaminophen 650 mg 05/17/19 20:18 Tylenol PO Q4H PRN Pain (Mild 1-3)/fever Levetiracetam 500 mg 05/17/19 21:00 05/17/19 20:54 Keppra PO 500 mg BID [facility] Administration Melatonin 9 mg 05/17/19 21:00 05/17/19 20:54 Melatonin PO 9 mg BEDTIME [facility] Administration Sodium Chloride 10 ml 05/17/19 15:26 05/17/19 15:52 Saline Flush FLUSH 10 ml ASDIRECTED PRN Administration Keep Vein Open Discontinued Medications Generic Name Dose Route Start Last Admin Trade Name Freq PRN Reason Stop Dose Admin Sodium Chloride 1,000 mls @ 999 mls/hr 05/17/19 15:30 05/17/19 15:52 Normal Saline IV 999 mls/hr ONETIME [facility] Administration Re-Assessment/Re-Exam: more alert, speech less slurred on recheck, CT of neck neg. for fx. Pharmacy states the one bottle was just filled 3 days ago, her clonazepam was for a quantity of 90, seroquel and tinazedine 30. Poison control was consulted, they states peak effect 6 to 8 hr, recomend further monitering, she does remain tachycardic, BP and oximetry have been good, have given IV fluid, will admit ICU for further care, monitering until stable for psych transfer. Departure - Departure Time of Disposition: 17:05 Disposition: Admitted As Inpatient 65 Condition: Serious Clinical Impression: Drug overdose, multiple drugs Qualifiers: Encounter type: sequela Injury intent: intentional self-harm Qualified Code(s) : T50.912S - Poisoning by multiple unspecified drugs, medicaments and biological substances, intentional self-harm, sequela Suicidal overdose Qualifiers: Encounter type: initial encounter Qualified Code(s): T50.902A - Poisoning by unspecified drugs, medicaments and biological substances, intentional self-harm , initial encounter - Discharge Information Sepsis Event Note - Focused Exam Date Exam was Performed: 05/18/19 Time Exam was Performed: 07:54 ED Communication - Discussed Case With (1) Discussed Case With (1): Admitting Provider (Dr Abreu, decision to admit at about 17:05.) - My Orders Last 24 Hours: My Active Orders 05/17/19 15:25 Peripheral IV Insertion Adult [OM.PC] Stat 05/17/19 15:26 Peripheral IV Care [RC] Q2HR Sodium Chloride 0.9% [Saline Flush] 10 ml FLUSH ASDIRECTED PRN 05/17/19 15:38 Insert Mueller Catheter [Insert Urinary Catheter] [OM.PC] Stat 05/17/19 15:44 Urinary Catheter Assessment [RC] ASDIRECTED - Assessment/Plan Last 24 Hours: My Active Orders 05/17/19 15:25 Peripheral IV Insertion Adult [OM.PC] Stat 05/17/19 15:26 Peripheral IV Care [RC] Q2HR Sodium Chloride 0.9% [Saline Flush] 10 ml FLUSH ASDIRECTED PRN 05/17/19 15:38 Insert Mueller Catheter [Insert Urinary Catheter] [OM.PC] Stat 05/17/19 15:44 Urinary Catheter Assessment [RC] ASDIRECTED
[2019-05-17 16:37] LABS: ACETAMINOPHEN 0 ug/mL (10-30)
--- NOTE | 2019-05-17 17:02 | CT ---
CT cervical spine Technique: Multiple axial sections were obtained from above C1 inferiorly to the bottom of T2. Reconstructed sagittal and coronal images were reviewed. Findings: Vertebral body heights and disc spaces are maintained. Vertebral bodies and posterior arches are intact. No fracture is seen. No bony central or bony neural foraminal stenosis is seen. No abnormal subluxation is seen on the reconstructed sagittal images. Prevertebral soft tissues are normal. Epiglottis is normal in size. Impression: 1. Nothing acute is appreciated on CT study of the cervical spine. Diagnostic code #1 This report was dictated in [place] Standard Time
[2019-05-17] MEDS ORDERED: Acetaminophen 325 MG Tab PO PRN (20:18)
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
[2019-05-17] MEDS: levETIRAcetam 500 MG Tab PO SCH (20:54)
[2019-05-17] MEDS ORDERED: Melatonin 3 MG Tab PO SCH (21:00)
[2019-05-18] MEDS: levETIRAcetam 500 MG Tab PO SCH (08:54)
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
== END 2019-05-18 13:15 | DRG 817 ==
LOC: JD.ED 15:19 → JD.ICU 17:41
PROVIDERS: ADMIT Family Medicine; ATTEND Family Medicine
DX: T42.4X2A Poisoning by benzodiazepines, intentional self-harm, initial encounter (principal); T42.8X2A Poisoning by antiparkinsonism drugs and other central muscle-tone depressants, intentional self-harm, initial encounter; R00.0 Tachycardia, unspecified; F41.9 Anxiety disorder, unspecified; Z88.8 Allergy status to other drugs, medicaments and biological substances; Z79.899 Other long term (current) drug therapy
CPT/HCPCS: 36415; 51702; 72125; 72125-26; 80053; 80306; 83605; 83735; 84450; 84460; 85025; 93005; 96360; 99285-25; A9270-GY; G0480; J7030

== ENCOUNTER 2019-07-17 22:13 | Emergency (ER) | payer BC ==
--- NOTE | 2019-07-17 23:13 | EDM.PDOC ---
ED HPI GENERAL MEDICAL PROBLEM - General Chief Complaint: ENT Problem Stated Complaint: SWELLING IN JAW Time Seen by Provider: 07/17/19 23:12 - History of Present Illness INITIAL COMMENTS - FREE TEXT/NARRATIVE: 39-year-old female presents the emergency room with left-sided dental pain. This is been getting worse over the last day and a half today her jaw started to swell up. She has a tooth that is been bothering her quite a bit on her lower jaw left side all the way back. Patient denies any fevers or chills. She is not had any dizziness or other complaints the pain is starting to go into her left ear. She is not had any breathing difficulties or shortness of breath she has bad teeth Left Oral/Mouth Pain Score (Numeric/FACES): 9 - Related Data Allergies Allergy/AdvReac Type Severity Reaction Status Date / Time acetaminophen [From Tylenol] AdvReac Vomiting Verified 07/17/19 22:30 gabapentin AdvReac Syncope Verified 05/17/19 15:31 NSAIDS (Non-Steroidal AdvReac Vomiting Verified 07/17/19 22:30 Anti-Inflamma Home Meds: Home Meds levETIRAcetam [Keppra] 500 mg PO BID 10 Days #20 tablet 04/21/19 [Rx] QUEtiapine [SEROquel] 100 mg PO BEDTIME 05/17/19 [History] clonazePAM [Klonopin] 1 mg PO TID 05/17/19 [History] tiZANidine [Zanaflex] 4 mg PO TID 05/17/19 [History] Amoxicillin 500 mg PO TID #30 tab 07/17/19 [Rx] Past Medical History HEENT History: Reports: None Cardiovascular History: Reports: Angina, Blood Clots/VTE/DVT, Other (See Below) Other Cardiovascular History: Tachycardia Respiratory History: Reports: None Gastrointestinal History: Reports: Hiatal Hernia, Other (See Below) Other Gastrointestinal History: Ulcerative Colitis Genitourinary History: Reports: UTI, Recurrent [employer] History: Reports: Polycystic Ovaries, Other (See Below) Other [employer]IST History: PID Musculoskeletal History: Reports: Other (See Below) Other Musculoskeletal History: "knobs" all over her wrist joints Neurological History: Reports: Headaches, Chronic, Seizure Psychiatric History: Reports: Anxiety, Bipolar, Depression, Suicide Attempt, Suicidal Ideation Endocrine/Metabolic History: Reports: Hypothyroidism Hematologic History: Reports: Anemia, Blood Transfusion(s) Immunologic History: Reports: None Oncologic (Cancer) History: Reports: None Dermatologic History: Reports: None - Infectious Disease History Infectious Disease History: Reports: MRSA - Past Surgical History GI Surgical History: Reports: Appendectomy, Bariatric Procedure, Cholecystectomy , Other (See Below) Other GI Surgeries/Procedures: Pt states that she had a gastric bypass and then had it reversed. Female Surgical History: Reports: Hysterectomy Social & Family History - Family History Family Medical History: Unobtainable - Tobacco Use Smoking Status *Q: Never Smoker - Caffeine Use Caffeine Use: Reports: Soda, Tea - Recreational Drug Use Recreational Drug Use: No ED ROS ENT - Review of Systems Review Of Systems: See Below Constitutional: Reports: No Symptoms. Denies: Fever, Chills HEENT: Reports: Dental Pain, Ear Pain Respiratory: Reports: No Symptoms Cardiovascular: Reports: No Symptoms Endocrine: Reports: No Symptoms GI/Abdominal: Reports: No Symptoms : Reports: No Symptoms ED EXAM, ENT - Physical Exam Exam: See Below Exam Limited By: No Limitations General Appearance: Alert, No Apparent Distress Eye Exam: Bilateral Eye: Normal Inspection Ears: Normal External Exam Nose: Normal Inspection, Normal Mucousa, No Blood Mouth/Throat: Normal Lips, Normal Oropharynx, Dental Pain (She has poor dentition rearmost teeth left lower swelling some erythema nothing to drain at this point). No: Peritonsillar Mass Head: Other (Developing some swelling in her left jaw) Neck: Normal Inspection, Supple, Non-Tender, Full Range of Motion Respiratory/Chest: No Respiratory Distress, Lungs Clear, Normal Breath Sounds, No Accessory Muscle Use, Chest Non-Tender Cardiovascular: Regular Rate, Rhythm, No Edema, No Murmur Course - Vital Signs Last Recorded V/S: Last Vital Signs Temp 36.8 C 07/17/19 22: Pulse 92 07/17/19 22:27 Resp 16 07/17/19 22:27 BP 152/83 H 07/17/19 22:27 Pulse Ox 100 07/17/19 22:27 - Orders/Labs/Meds Meds: Medications Discontinued Medications Generic Name Dose Route Start Last Admin Trade Name Freq PRN Reason Stop Dose Admin Ceftriaxone Sodium 1 gm 07/17/19 23:20 Rocephin IM 07/17/19 23:21 ONETIME ONE - Re-Assessments/Exams Free Text/Narrative Re-Assessment/Exam: 07/17/19 23:24 She will receive a IM dose of Rocephin she is really not a good candidate for any pain medication due to allergies to ibuprofen and acetaminophen give a shot of Rocephin and will just have to go with antibiotics at this point. Departure - Departure Time of Disposition: 23:28 Disposition: Home, Self-Care 01 Clinical Impression: Dental caries - Discharge Information Prescriptions: Amoxicillin 500 mg PO TID #30 tab Referrals: Krishan Vidal MD [Primary Care Provider] - Forms: ED Department Discharge Additional Instructions: Turn to the emergency room with any questions problems or worsening symptoms. Follow-up with a dentist as soon as you can. Take the antibiotics until all gone Sepsis Event Note - Evaluation Sepsis Screening Result: No Definite Risk - Focused Exam Vital Signs: Vital Signs Temp Pulse Resp BP Pulse Ox 07/17/19 22:27 36.8 C 92 16 152/83 H 100 Date Exam was Performed: 07/17/19 Time Exam was Performed: 23:28
[2019-07-17] MEDS ORDERED: cefTRIAXone 1 GM Vial IM ONE (23:20)
== END 2019-07-18 00:11 | disposition home or self-care (01) ==
LOC: JD.ED 22:13
DX: K02.9 Dental caries, unspecified (principal); K00.7 Teething syndrome; Z86.718 Personal history of other venous thrombosis and embolism; F41.9 Anxiety disorder, unspecified; F32.9 Major depressive disorder, single episode, unspecified; Z88.8 Allergy status to other drugs, medicaments and biological substances; Z79.899 Other long term (current) drug therapy
CPT/HCPCS: 96372; 99282; J0696; 99283